=== PATIENT | male | born 2005 | race African-American/Black ===

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

== ENCOUNTER 2024-01-10 21:29 | Emergency (ER) | payer OTHER ==
[2024-01-10] MEDS ORDERED: Bupivacaine 0.25% 10 ML VIAL ONE (22:26)
[2024-01-10] MEDS ORDERED: Bacitracin 1 PK ONE (23:13)
== END 2024-01-10 23:18 | disposition home or self-care (01) ==
LOC: ERS 21:29
DX: S61.312A Laceration without foreign body of right middle finger with damage to nail, initial encounter (principal); W26.0XXA Contact with knife, initial encounter
CPT/HCPCS: 12001; J0665

== ENCOUNTER 2024-06-17 17:14 | Emergency (ER) | payer SELFPAY | END 2024-06-17 18:49 | disposition home or self-care (01) | LOC: ERS 17:14 | DX: J06.9 Acute upper respiratory infection, unspecified (principal) | CPT/HCPCS: 87081; 87428; 87430; 99283 ==